=== PATIENT | male | born 1945 | race Two or more races ===

== ENCOUNTER 2016-08-05 19:29 | Observation (INO) | payer MEDICARE, OTHER ==
--- NOTE | ~2016-08-05 | DS ---
Unit #: [id number] #: [id number] Patient: DEON BIRCH [id number] [address] [place], [place] [address] [id number] MR#: [id number] NAME: DEON BIRCH ROOM: 303 Age: 70 Sex: M Admission Date: 08/05/2016 : 1945 Discharge Date: 08/07/2016 Attending Physician: Abiodun Arroyo M.D. DISCHARGE SUMMARY ADMITTING DIAGNOSES Influenza A pneumonia, tachycardia, history of asthma, history of hyperlipidemia. DISCHARGE DIAGNOSES Influenza A pneumonia, tachycardia, history of asthma, history of hyperlipidemia, acute kidney injury. HISTORY OF PRESENTING ILLNESS The patient is a 70-year-old Faroese-speaking gentleman, who does not speak Ukrainian. He presented to the hospital with a chief complaint of fever, shortness of breath, and tachycardia. HOSPITAL COURSE In the initial evaluation, his influenza test came back positive. He was started on Tamiflu. His heart rates were high up to 140s with initial creatinine high up to 1.4. We started on sepsis protocol, IV fluids, Tamiflu, Rocephin, and Zithromax. His creatinine came down to 1.1. Yesterday itself, he was very eager to go home. He and his son were very adamant, they want to leave and I requested them to stay for one more day and will continue with IV fluids. After, the heart rates I checked manually around 102 per minute. The patient is very adamant that he wants to leave home. I requested him that if he is not feeling well, he needs to come back to the emergency room. We will discharge him on Medrol Dosepak, Tamiflu, and Zithromax. We will request him to follow with his primary care in 1 to 2 weeks. I spoke today to his daughter who acted as an immigration specialist for me and yesterday through his son who helped me interpret to the patient. The patient states he is doing clinically better. He is able to tolerate oral diet and is eager to go home. PHYSICAL EXAMINATION On the day of the discharge, VITAL SIGNS: Temperature 98.4, pulse rate 102, respiratory rate 18, blood pressure 122/78. GENERAL: The patient is alert and oriented x3. Lying in the bed. No acute distress. HEENT: Normocephalic, atraumatic. No icterus. CHEST: Bilateral equal entry. Minimal rhonchi. HEART: S1, S2. Tachycardic. ABDOMEN: Soft, nontender. EXTREMITIES: No edema. Normal pulses. DIAGNOSTIC STUDIES Unit #: [id number] #: [id number] Patient: DEON BIRCH LABORATORY RESULTS: BUN 15, creatinine 1.1, glucose 99. WBC 4.7, hemoglobin 12.4. DISCHARGE MEDICATIONS Include Zithromax 250 mg p.o. daily for 3 days, Tamiflu 75 mg p.o. b.i.d. for 3 days, Medrol Dosepak, Symbicort 160/4.5 mcg two puffs b.i.d., Tylenol p.r.n., Flonase 0.05% nasal spray daily, simvastatin 40 mg daily. DISCHARGE INSTRUCTIONS He is instructed to follow with his primary care in 1 to 2 weeks and meanwhile if he is not doing well, he is instructed to come back to the emergency room. Total time spent in his care 28 minutes. Dictated by... Elisabet Stewart/marissa TD: 08/08/2016 08:43 JOB #: [id number] DISCHARGE SUMMARY Page 1 of 1 X X DISCHARGE SUMMARY
--- NOTE | ~2016-08-05 | EKG ---
PATIENT: DEON BIRCH UNIT #: [id number] Ventricular Rate: 128 BPM Atrial Rate: 128 BPM P-R Interval: 162 ms QRS Duration: 76 ms Q-T Interval: 300 ms QTC Calculation(Bezet): 438 ms P Comstock: 58 degrees Calculated R Comstock: 61 degrees Calculated T Comstock: 36 degrees Diagnosis Line: Sinus tachycardia Diagnosis Line: Left ventricular hypertrophy Diagnosis Line: Abnormal ECG Baseline wander Diagnosis Line: Diagnosis Line: Confirmed by GELY XAVIER MD ([id number]) on 08/07/2016 Diagnosis Line: 7:30:43 AM INTERPRETING MD: DUC THOMPSON
--- NOTE | ~2016-08-05 | EKG ---
PATIENT: DEON BIRCH UNIT #: [id number] Ventricular Rate: 118 BPM Atrial Rate: 118 BPM P-R Interval: 172 ms QRS Duration: 84 ms Q-T Interval: 290 ms QTC Calculation(Bezet): 406 ms P Parksley: 62 degrees Calculated R Parks[place]: 66 degrees Calculated T Parksley: 26 degrees Diagnosis Line: Sinus tachycardia Diagnosis Line: Moderate voltage criteria for LVH, may be normal Diagnosis Line: variant Diagnosis Line: Borderline ECG Diagnosis Line: Diagnosis Line: Confirmed by ALEX MAR MD ([id number]) on Diagnosis Line: 08/07/2016 8:02:10 AM INTERPRETING MD: ZAID THOMPSON
--- NOTE | ~2016-08-05 | CR72 ---
[facility] A Service of [facility] & [facility] RADIOLOGY TEXT RESULTS PATIENT: DEON BIRCH LOCATION: [facility] 303- : 43 UNIT #: [id number] AGE: [address]: Ruben Ni MD SEX: M ORDER DR: [id number] [facility] [address] [place], [place] [address] [id number] I MR#: [id number] Acc #: [id number] NAME: DEON BIRCH : 1945 SEX: M STUDY DATE/TIME: 08/05/2016 19:20 UNIT: [address] ROOM: [facility] STUDY DESCRIPTION: CR Chest Single View Portable Attending Physician: Ruben Ni M.D. Ordering Physician: Ed Bigg Bautista M.D. Primary Care Physician: Primary Care Physician No MEDICAL IMAGING REPORT This report is preliminary unless electronic signature is present EXAM Chest x-ray, 08/05/2016 HISTORY Short of air, cough with back pain, headaches, symptoms started yesterday. COMMENT Single frontal portable view of the chest timed 19:20 on 08/05/2016 is compared to a study from 03/14/2009. The heart size is normal. There is mild ectasia of the descending thoracic aorta which is not changed. There is no acute appearing parenchymal infiltrate or acute congestive failure. No pleural effusion or pneumothorax. Probable nipple shadows seen, lower lungs. IMPRESSION No active disease. Dictated by... Nunu Aponte M.D. THIS IS AN ELECTRONICALLY VERIFIED REPORT Nunu Aponte M.D. at 08/07/2016 7:46 AM TACHO/amanda TD: 08/07/2016 01:13 JOB #: [id number] MEDICAL IMAGING REPORT COPY
--- NOTE | ~2016-08-05 | HP ---
Unit #: [id number] #: [id number] Patient: DEON BIRCH [id number] [address] [address] [id number] I MR#: [id number] NAME: DEON BIRCH ROOM: 303 Age: 70 Sex: M Admission Date: 08/05/2016 : 1945 Attending Physician: Ruben Ni M.D. Primary Care Physician: No Primary Care Physician HISTORY AND PHYSICAL CHIEF COMPLAINT Shortness of breath, fever, tachycardia. DISCUSSION This is a 70-year-old gentleman who does not speak Equatorial Guinean, speaks Wallisian, but family is available at bedside who speak good Equ[place]an. He has a history of asthma and dyslipidemia. He presented to the emergency room with chief complaint of having fever and shortness of breath, cough and generalized body ache, back pain. In the ER he was found to be tachycardic, heart rate 140s, temperature 101.3 and flu positive. He was given 1 L of normal saline. He was still tachycardic and eventually being admitted for observation though he denied chest pain. Denies nausea, vomiting or any other complaint. PAST MEDICAL HISTORY 1. History of asthma. 2. Dyslipidemia. PAST SURGICAL HISTORY Denies any surgical intervention in the past. SOCIAL HISTORY He does not smoke, does not drink alcohol. No other illicit drug use. FAMILY HISTORY Positive for history of asthma. MEDICATIONS Medications from home: 1. Simvastatin. 2. Symbicort. 3. Ventolin. 4. Flonase. ALLERGIES No known drug allergies. REVIEW OF SYSTEMS All review of systems negative except as in history of present illness. PHYSICAL EXAMINATION GENERAL: Middle aged man lying in the bed comfortably, currently not in any distress. He is alert, awake, oriented x3. CURRENT VITAL SIGNS: Temperature is 101.3, heart rate 138, respiratory Unit #: [id number] #: [id number] Patient: DEON BIRCH rate 23, blood pressure 117/64. HEENT: Pupils equal, reactive to light and accommodation. Head is normocephalic, atraumatic. NECK: Supple. No JVD. HEART: S1, S2. Regular rate and rhythm. Tachycardia. ABDOMEN: Soft, nontender, nondistended. Bowel sounds positive. EXTREMITIES: Inspection normal. No cyanosis, no clubbing, no edema. NEURO: No focal neurologic deficit. DIAGNOSTIC STUDIES LABORATORY: His troponin is less than 0.05. Flu is positive for A. BNP is 9. UA is negative. BMP - sodium 137, potassium 4.3, chloride 102, glucose 103, BUN 18, creatinine 1.4. LFT within normal limits. Lactic acid 1.3. Troponin less than 0.05. CBC - white count 9, hemoglobin 14, hematocrit 44, platelet is 173. IMAGING: Chest x-ray negative for infiltrate. ASSESSMENT AND PLAN 1. Influenzae A: Start patient on Tamiflu. 2. Upper respiratory infection with a cough: Start IV Rocephin and Zithromax while in hospital. 3. Sinus tachycardia: Given IV fluid and normal saline and will monitor. Most likely secondary to fever. 4. History of asthma. 5. Dyslipidemia. 6. Seems a little anxious. Family okay for anxiety medications. Will place on Xanax on a p.r.n. basis, Violetta hua. 7. DVT prophylaxis: Place on SCDs. Dictated by Elisabet Goyal/myles TD: 08/06/2016 09:08 JOB #: [id number] Unit #: [id number] #: [id number] Patient: JOSE CRUZ ORTIZDEON HISTORY AND PHYSICAL X X HISTORY AND PHYSICAL
[~2016-08-05 19:29] MED LIST: MOBIC PO
[2016-08-05 19:38] LABS: BASOPHIL% 0.2 % (0-2.5); EOSINOPHIL# 0.1 X10e3 (0-0.7); EOSINOPHIL% 0.6 % (0.0-7.0); HEMATOCRIT 44.2 % (38.0-50.0); HEMOGLOBIN 14.8 gm/dL (13.0-16.0); LYMPHOCYTE# 0.4 X10e3 (1.0-3.5); LYMPHOCYTE% 4.5 % (17.0-45.0); MEAN CELL VOLUME 96.7 FL (83-96); MEAN CORPUSCULAR HEMOGLOBIN 32.4 PG (28-34); MEAN CORPUSCULAR HGB CONC 33.5 g/dL (30-36); MEAN PLATELET VOLUME 10.3 FL (6.5-11.5); MONOCYTE# 0.5 X10e3 (0-1.0); MONOCYTE% 5.4 % (3.0-12.0); NEUTROPHIL# 8.6 X10e3 (1.5-7.1); NEUTROPHIL% 89.3 % (40-75); PLATELET COUNT 173 X10e3 (140-420); RED BLOOD COUNT 4.57 X10e (3.90-5.60); RED CELL DISTRIBUTION WIDTH 12.2 % (11.0-15.5); WHITE BLOOD COUNT 9.6 X10e3 (4.0-10.5)
[2016-08-05 19:45] LABS: URINE SOURCE CLEAN CATCH
[2016-08-05 19:47] LABS: DIFF IND NO
[2016-08-05 19:51] LABS: URINE APPEARANCE CLEAR; URINE BILIRUBIN NEG (NEG); URINE BLOOD 1+ (NEG); URINE COLOR YELLOW; URINE GLUCOSE NEG (NEG); URINE KETONE NEG (NEG); URINE LEUKOCYTE ESTERASE NEG (NEG); URINE NITRATE NEG (NEG); URINE PH 5.5 (5-8); URINE PROTEIN NEG (NEG); URINE SPECIFIC GRAVITY 1.021 (1.003-1.035); URINE UROBILINOGEN 0.2 MG/DL (NEG)
[2016-08-05 19:53] LABS: URINE BACTERIA AUWI NEG (NEGATIVE); URINE SQUAMOUS EPITHELIAL CELL NONE SEEN /[HPF]; UWBCS1 AUWI 0-2 (0-5)
[2016-08-05 19:54] LABS: POC - CKMB 1.5 ng/mL (0.0-7.9); POC - TROPONIN <0.05 ng/mL (<=0.05)
[2016-08-05 19:55] LABS: ALBUMIN SERUM 4.6 g/dL (3.5-5.0); BILIRUBIN, DIRECT 0.1 mg/dL (0.0-0.2); BILIRUBIN,INDIRECT 0.6 mg/dL (0.0-0.9); BILIRUBIN,TOTAL 0.7 mg/dL (0.2-2.0); BUN/CREATININE RATIO 12.85; CALCIUM SERUM 9.7 mg/dL (8.4-10.2); CREATININE SERUM 1.4 mg/dL (0.6-1.4); GLOM FILT RATE Estimated 52.9 mL/min (>60); POTASSIUM 4.3 mmol/L (3.5-5.1); PROTEIN TOTAL SERUM 8.1 g/dL (6.0-8.3)
[2016-08-05 20:02] LABS: CULTURE INDICATED? NO
[2016-08-05 21:02] LABS: INFLUENZA A POS (NEG); INFLUENZA B NEG (NEG)
[2016-08-05 21:46] LABS: POC - CKMB <1.0 ng/mL (0.0-7.9); POC - TROPONIN <0.05 ng/mL (<=0.05)
[2016-08-06 04:49] LABS: BUN/CREATININE RATIO 11.53; CALCIUM SERUM 8.1 mg/dL (8.4-10.2); CREATININE SERUM 1.3 mg/dL (0.6-1.4); GLOM FILT RATE Estimated 57.7 mL/min (>60); POTASSIUM 3.6 mmol/L (3.5-5.1)
[2016-08-06] MEDS ORDERED: SYMBICORT INH (17:37)
[2016-08-06] MEDS ORDERED: TYLENOL325 M1 PO (17:37)
[2016-08-06] MEDS ORDERED: SIMVASTATIN40 MG PO (17:50)
[2016-08-06] MEDS ORDERED: FLONASE 0.05% N16 G1 (17:51)
[2016-08-06] MEDS ORDERED: ALBUTEROL17 GM INH (17:52)
[2016-08-07 06:01] LABS: HEMATOCRIT 37.2 % (38.0-50.0); MEAN CELL VOLUME 96.5 FL (83-96); MEAN CORPUSCULAR HEMOGLOBIN 32.2 PG (28-34); MEAN CORPUSCULAR HGB CONC 33.4 g/dL (30-36); MEAN PLATELET VOLUME 9.9 FL (6.5-11.5); RED BLOOD COUNT 3.86 X10e (3.90-5.60); RED CELL DISTRIBUTION WIDTH 12.4 % (11.0-15.5)
[2016-08-07 06:19] LABS: WHITE BLOOD COUNT 4.7 X10e3 (4.0-10.5)
[2016-08-07 06:20] LABS: HEMOGLOBIN 12.4 gm/dL (13.0-16.0)
[2016-08-07 06:37] LABS: ALBUMIN SERUM 3.3 g/dL (3.5-5.0); ALKALINE PHOSPHATASE 38 U/L (32-92); ALT (SGPT) 22 U/L (10-40); AST (SGOT) 34 U/L (10-42); BILIRUBIN,TOTAL 0.9 mg/dL (0.2-2.0); BLOOD UREA NITROGEN 15 mg/dL (9-23); BUN/CREATININE RATIO 13.63; CALCIUM SERUM 8.1 mg/dL (8.4-10.2); CARBON DIOXIDE 22 mmol/L (22-31); CHLORIDE 107 mmol/L (100-111); CREATININE SERUM 1.1 mg/dL (0.6-1.4); GLOM FILT RATE Estimated ABOVE60 mL/min (>60); GLUCOSE FASTING 99 mg/dL (70-110); POTASSIUM 4.2 mmol/L (3.5-5.1); PROTEIN TOTAL SERUM 6.2 g/dL (6.0-8.3); SODIUM 136 mmol/L (135-145)
[2016-08-07] MEDS ORDERED: AZITHROMYCIN250 MG PO (17:12)
[2016-08-07] MEDS ORDERED: MEDROL4 MG/DOSE- PO (17:13)
[2016-08-07] MEDS ORDERED: TAMIFLU75 M1 PO (17:15)
== END 2016-08-07 18:28 | disposition home or self-care (01) ==
LOC: CED 19:29 → CEDOF 23:00 → C3A PCU 08-06 07:48
PROVIDERS: Emergency Medicine; Internal Medicine
DX: J10.01 Influenza due to other identified influenza virus with the same other identified influenza virus pneumonia (principal); R00.0 Tachycardia, unspecified; E78.5 Hyperlipidemia, unspecified; J45.909 Unspecified asthma, uncomplicated; N17.9 Acute kidney failure, unspecified
CPT/HCPCS: 36415; 71010; 80048; 80053; 80076; 81003; 82553; 83605; 83880; 84484; 85025; 85027; 85379; 87040; 87070; 87205; 87804; 93005; 94640; 94760; 96360; 96361; 96365; 96372; 96375; 99285; G0378; J0456; J0696; J1650